=== PATIENT | female | born 1945 | race Caucasian/White ===

== ENCOUNTER → 2017-09-13 14:33 | Outpatient (CLI) | payer MEDICARE, OTHER, SELFPAY | PROVIDERS: Family Provider Internal Medicine; PCP Family Medicine; Visit Provider Internal Medicine | DX: E11.621 Type 2 diabetes mellitus with foot ulcer (principal); L97.511 Non-pressure chronic ulcer of other part of right foot limited to breakdown of skin; L84 Corns and callosities | CPT/HCPCS: 99213 ==

== ENCOUNTER → 2017-09-20 14:18 | Outpatient (CLI) | payer MEDICARE, OTHER, SELFPAY | PROVIDERS: Family Provider Internal Medicine; PCP Family Medicine; Visit Provider Internal Medicine | DX: E11.621 Type 2 diabetes mellitus with foot ulcer (principal); L97.511 Non-pressure chronic ulcer of other part of right foot limited to breakdown of skin | CPT/HCPCS: 99212 ==

== ENCOUNTER 2019-09-02 15:54 | Emergency (ER) | payer MEDICARE, OTHER, SELFPAY ==
[2019-09-02 15:58] VITALS: BP 146/70; PULSE 65; RESP 16; TEMP 36.3; O2SAT 95; BMI 40.1
--- NOTE | 2019-09-02 16:04 | DI.RAD.S_ITS ---
PROCEDURE: XR TIBIA FUBULA RT 2V INDICATIONS: fall TECHNIQUE: 2 views of the tibia and fibula were acquired. COMPARISON: None. FINDINGS: Bones: Oblique fracture involving distal fibular shaft/lateral malleolus is seen. No other fracture or dislocation is seen. No suspicious bony lesions. Soft tissues: No suspicious soft tissue calcifications or masses. Clips are seen in soft tissue over proximal to mid right tibial shaft. IMPRESSION: Distal fibular/lateral malleolus fracture. No proximal tibial or fibular shaft fractures. Dictated by: Sean Hylton M.D. on 09/02/2019 at 16:35 Approved by: Sean Hylton M.D. on 09/02/2019 at 16:37
--- NOTE | 2019-09-02 16:04 | DI.RAD.S_ITS ---
PROCEDURE: XR ANKLE RT MIN 3V INDICATIONS: fall TECHNIQUE: 3 views of the ankle were acquired. COMPARISON: None. FINDINGS: Bones: Oblique fracture involving distal fibular shaft is seen with no significant displacement.. Ankle mortise is normally aligned. No suspicious bony lesions. Soft tissues: No tibiotalar joint effusion. Achilles tendon appears normal. Lateral ankle soft tissue swelling is noted. IMPRESSION: Oblique fracture involving distal fibular/lateral malleolus with overlying soft tissue swelling. Ankle mortise is congruent. Dictated by: Sean Hylton M.D. on 09/02/2019 at 16:35 Approved by: Sean Hylton M.D. on 09/02/2019 at 16:35
[2019-09-02] MEDS: HYDROCODONE/ACET 5/325 TABLET 1 TAB PO (18:54)
--- NOTE | 2019-09-02 19:07 | ED_ITS ---
HPI - Extremity Injury (Lower) <KELLIE Bro - Last Filed: 09/03/19 01:03> General Chief Complaint: Extremity Injury, Lower Stated Complaint: fall, right leg pain Time Seen by Provider: 09/02/19 17:34 Source: patient Mode of arrival: Wheelchair Limitations: no limitations History of Present Illness HPI Narrative: This is a 74-year-old female, smoker, who has history of femoral artery bypass, cardiac stents, hypertension, hyperlipidemia, arthritis presents to ED with her spouse with chief complain of right lateral ankle pain. Patient reports she lost balance and fell in between a bed and a dresser when she woke up this morning at 5:00 a.m. During this her right foot was hyperextended and inverted against a dresser. Patient had used [id number] Tylenol and ice pack until she came in to ED. Denies chest pain, breathing difficulty, dizziness prior to the fall. Denies injuring her head or loss of consciousness after the fall. She reports is currently taking Plavix and aspirin and not to take NSAIDs. She is not sure of history of osteoporosis or osteopenia. She usually uses a walker and has a gait problem. Patient reports intact sensation and is able to move her toes. Patient reports she has bruise to right knee but is able to bend her knees without pain and no pain in pelvis/hips. Related Data Home Medications Medication Instructions Recorded Confirmed OMEPRAZOLE 20 mg PO QDAY #0 05/17/12 aspirin 325 mg PO QDAY #0 05/17/12 carvedilol [Coreg] 12.5 mg PO BID #0 05/17/12 glipizide 5 mg PO BIDAC #0 05/17/12 insulin glargine [Lantus Solostar 57 unit SQ HS #0 05/17/12 U-100 Insulin] lisinopril 5 mg PO QDAY #0 05/17/12 loratadine 10 mg PO QDAY #0 05/17/12 simvastatin 40 mg PO HS #0 05/17/12 tramadol 50 mg PO TID #0 05/17/12 Previous Rx's Medication Instructions Recorded docusate sodium [Colace] 100 mg PO DAILY #14 cap 09/02/19 docusate sodium [Colace] 100 mg PO DAILY #14 cap 09/02/19 hydrocodone-acetaminophen [[place]] 1 tab PO Q8H PRN #14 tab 09/02/19 hydrocodone-acetaminophen [[place]] 1 tab PO TID PRN #14 tab 09/02/19 Allergies Allergy/AdvReac Type Severity Reaction Status Date / Time CODEINE Allergy Mild STOMACH Uncoded 08/07/17 12:02 REACTION Review of Systems <KELLIE Bro - Last Filed: 09/03/19 01:03> Review of Systems Narrative: General: Denies fever, chills, fatigue, malaise, sweats. HEENT: Denies sinus pain, ear pain, sore throat, difficulty swallowing, dizziness. Respiratory: Denies dyspnea, cough, wheezing, hemoptysis, sputum. Cardiovascular: Denies chest pain, palpitations, orthopnea, edema. Gastrointestinal: Denies nausea, vomiting, abdominal pain, diarrhea, constipation, melena. : Denies dysuria, frequency, incontinence, hematuria, urinary retention. Musculoskeletal: See HPI Skin: See HPI Neurologic: Denies weakness, headache, numbness, change in speech, confusion, seizures, incoordination. Psychiatric: No concerning psychosocial issues. 12-point review of systems is negative except for those stated above. Patient History <KELLIE Bro - Last Filed: 09/03/19 01:03> Medical History Arthritis (Acute) Femoral abnormality (Acute) Gait difficulty (Acute) Hyperlipidemia (Acute) Hypertension (Acute) Surgical History H/O heart artery stent (Acute) History of bilateral tubal ligation (Acute) Hx of cholecystectomy (Acute) Social History Smoking Status: Current every day smoker Smoking Status: Current every day smoker tobacco type: cigarettes alcohol intake frequency: holidays/special occasions only Substance Use Type: does not use Exam <KELLIE Bro - Last Filed: 09/03/19 01:03> Narrative Exam Narrative: General appearance: well developed, well nourished, in no acute distress. Head: normocephalic, atraumatic, no scalp lesions, non-tender. ENT: Hearing grossly intact. Nose without bleeding, purulent discharge. Mucous membrane moist, no mucosal lesion. Throat without erythema, tonsillar hypertrophy or exudate. Uvula in midline, airway patent. Neck/Thyroid: neck supple, full range of motion, no visible masses or meningeal signs. No JVD, non-tender without lymphadenopathy. Skin: no suspicious rashes, lesions over visible areas. Warm and dry and appropriate color for ethnicity. Heart: no clubbing, no cyanosis, no edema. S1 and S2 normal. RRR w/o murmurs, clicks, or bruits. Lungs: Breathing even and unlabored. No stridor. No accessory muscles used. Able to speak in full sentences. Chest: normal shape and expansion. Abdomen: non-obese, non-distended. Neurologic: alert and oriented. Cognitive exam, [employer] and PNS grossly intact on informal exam. Psych: good eye contact, normal affect. Initial Vital Signs Initial Vital Signs: Vital Signs Temperature 97.4 F L 09/02/19 15:58 Pulse Rate 65 09/02/19 15:58 Respiratory Rate 16 09/02/19 15:58 Blood Pressure 146/70 H 09/02/19 15:58 Pulse Oximetry 95 09/02/19 15:58 Extrem Right lower extremity: hip/thigh Details: normal ROM; no tenderness and no swelling, knee Details: normal to inspection, tenderness (to palpate in medial knee but normal movement), normal ROM, knee ligament exam normal and ecchymosis (light ecchymosis in medial knee); no swelling, ankle Details: abnormal to inspection, tenderness Location: of the lateral malleolus, swelling (ankle, worse in lateral aspect), abnormal ROM Details: pain with passive ROM Details: with plantar flexion, with dorsiflexion, with inversion and with eversion and ecchymosis (lateral ankle); no unusual warmth, no abrasions and no lacerations and foot Details: normal capillary refill, vascular exam Details: dorsalis pedis pulse present and motor-sensory exam Details: light-touch normal <Adin Rosales, DO - Last Filed: 09/03/19 05:07> Initial Vital Signs Initial Vital Signs: Vital Signs Temperature 97.4 F L 09/02/19 15:58 Pulse Rate 65 09/02/19 15:58 Respiratory Rate 16 09/02/19 15:58 Blood Pressure 146/70 H 09/02/19 15:58 Pulse Oximetry 95 09/02/19 15:58 Procedures <KELLIE Bro - Last Filed: 09/03/19 01:03> Orthopedic Splinting/Casting Injury #1: Side: right Lower Extremity Injury Location: ankle Lower Extremity Immobilizer: stirrup splint Post splinting neuro exam: intact Post splinting vascular exam: intact Placed by: Nursing Scores <KELLIE Bro - Last Filed: 09/03/19 01:03> GCS [place] coma scale eye opening: Spontaneous [place] coma scale verbal response: Orientated [place] coma scale motor response: Obey commands Cathy coma scale total score: 15 Course <KELLIE Bro Last Filed: 09/03/19 01:03> Orders Ordered: Discontinued Medications Hydrocodone Bitart/Acetaminophen ([place] 5/325) 1 tab PO NOW ONE Stop: 09/02/19 18:17 Last Admin: 09/02/19 18:54 Dose: 1 tab Documented by: CAPO Hydrocodone Bitart/Acetaminophen (Vicodin 5/325 Prepack) 1 bottle MISC SEEINSTR ONE Stop: 09/02/19 19:17 Last Admin: 09/02/19 19:38 Dose: 1 bottle Documented by: LINCOLN Vital Signs Vital signs: Vital Signs - 8 hr 09/02/19 15:58 Temperature 97.4 F L Pulse Rate 65 Respiratory Rate 16 Blood Pressure 146/70 H Pulse Oximetry 95 <Adin Rosales DO - Last Filed: 09/03/19 05:07> Orders Ordered: Discontinued Medications Hydrocodone Bitart/Acetaminophen ([place] 5/325) 1 tab PO NOW ONE Stop: 09/02/19 18:17 Last Admin: 09/02/19 18:54 Dose: 1 tab Documented by: CAPO Hydrocodone Bitart/Acetaminophen (Vicodin 5/325 Prepack) 1 bottle MISC SEEINSTR ONE Stop: 09/02/19 19:17 Last Admin: 09/02/19 19:38 Dose: 1 bottle Documented by: LINCOLN Vital Signs Vital signs: Vital Signs - 8 hr 09/02/19 15:58 Temperature 97.4 F L Pulse Rate 65 Respiratory Rate 16 Blood Pressure 146/70 H Pulse Oximetry 95 MDM - Extremity Injury (Lower) <KELLIE Bro - Last Filed: 09/03/19 01:03> Differential Diagnosis Differential diagnosis: Likely ankle fracture and other (contusion to right knee) Medical Records Attestation: I reviewed the patient's medical records. Imaging Data XR-Ankle RT: Radiologist's Impression: [address] [address] XRay Report Signed Patient: Lizzy Sifuentes#: [id number] : 5Acct:[id number] Age/Sex: 74 / FDate of Service: 09/02/19 Loc: ED Accession Number: [id number] Procedure: XR ankle RT min 3V Ordering Provider: Carrie Bryson MD PROCEDURE: XR ANKLE RT MIN 3V INDICATIONS: fall TECHNIQUE: 3 views of the ankle were acquired. COMPARISON: None. FINDINGS: Bones: Oblique fracture involving distal fibular shaft is seen with no significant displacement.. Ankle mortise is normally aligned. No suspicious bony lesions. Soft tissues: No tibiotalar joint effusion. Achilles tendon appears normal. Lateral ankle soft tissue swelling is noted. IMPRESSION: Oblique fracture involving distal fibular/lateral malleolus with overlying soft tissue swelling. Ankle mortise is congruent. Dictated by: Sean Hylton M.D. on 09/02/2019 at 16:35 Approved by: Sean Hylton M.D. on 09/02/2019 at 16:35 XR-Tib/fibula RT: Radiologist's Impression: [address] [address] XRay Report Signed Patient: Lizzy Sifuentes#: [id number] : 5Acct:[id number] Age/Sex: 74 / FDate of Service: 09/02/19 Loc: ED Accession Number: [id number] Procedure: XR tibia fibula RT 2V Ordering Provider: Carrie Bryson MD PROCEDURE: XR TIBIA FUBULA RT 2V INDICATIONS: fall TECHNIQUE: 2 views of the tibia and fibula were acquired. COMPARISON: None. FINDINGS: Bones: Oblique fracture involving distal fibular shaft/lateral malleolus is seen. No other fracture or dislocation is seen. No suspicious bony lesions. Soft tissues: No suspicious soft tissue calcifications or masses. Clips are seen in soft tissue over proximal to mid right tibial shaft. IMPRESSION: Distal fibular/lateral malleolus fracture. No proximal tibial or fibular shaft fractures. Dictated by: Sean Hylton M.D. on 09/02/2019 at 16:35 Approved by: Sean Hylton M.D. on 09/02/2019 at 16:37 MDM Narrative Medical decision making narrative: This is a 74 year female who presents to ED with right ankle pain and swelling after she lost balance and fell this morning at 5:00 a.m.. Patient has history of cardiac stents, right femoral artery bypass, hypertension and hyperlipidemia and currently takes Plavix and aspirin as an anticoagulant. Patient had intact sensation and dorsal pedal pulse. Patient was able to wiggle her toes and move her foot lightly against resistance for plantar flexion and dorsal extension. There was swelling noticed around the ankle. Tib/Fib and ankle xray indicates distal fibula/lateral malleolar oblique fracture. There is no TB old her served joint effusion appreciated. Ankle mortise is congruent. Ankle stirup splint has been applied on affected leg and medicated patient with [place] since patient is not able to take NSAIDS. Dr. Bran was phone consulted and recommended ortho boot or ankle stirrup splint as long as non-displaced ankle distal tib/fib fracture and to follow-up at [facility] this with. Dr. Bran clarified that limit weight bearing as much as possible but requiring for strict non-weight bearing if the patient is unable to use crutches. Patient has history of gait difficulty and informed that she is unable to use crutches. Patient discharged to with Newport for severe pain and advised to use [id number] Tylenol as 1st line pain treatment along RICE therapy and to use splint all times. Narcotic and Tylenol medication precautions were discussed with the patient. Patient verbalized understanding and agreement with the treatment plan. Discharge Plan Departure Patient Disposition: Home Clinical Impression: Closed tibial fracture Qualifiers: Encounter type: initial encounter Tibia location: distal Fracture morphology: unspecified fracture morphology Laterality: right Qualified Code(s): S82.301A - Unspecified fracture of lower end of right tibia, initial encounter for closed fracture Discharge Date/Time: 09/02/19 19:39 Instructions: DI for Ankle Fracture Activity Restrictions/Additional Instructions: You have been diagnosed with [right closed distal fibula fracture. Please use c ool packs for next 48 hours and elevate affected limb. Use splint all times.]. What to do: *Take your medications as directed. You were medicated with Newport while in ED. Since you cannot take NSIDS, please take Tylenol as needed for discomfort. Narcotic medication [place] for severe pain please. This medication can cause drowsiness so please do not drive, drink alcohol or operate heavy equipments. He can cause constipation as well so please take precautions. [place] has Tylenol mixed in it and you can take total about 3000 mg Tylenol in 24 hour period. Please wear splint all time. Please limit weight-bearing as much as possible. Use a walker that you have and follow-up with [facility] for respiratory and complex care orthopedist. *Follow up with your primary care provider in 2-3 days, call for an appointment. Let them know you were seen in the ED and that we asked you to be seen in follow up. *Return to ED if you have any new, worsening, or concerning symptoms, such as [chest pain, breathing difficulty, unable to tolerate fluids, tingling/numbness/weakness, fever or any acute concerns]. Prescriptions: New hydrocodone-acetaminophen [[place]] 5-325 mg tablet 1 tab PO TID PRN (Reason: pain) Qty: 14 RF: 0 docusate sodium [Colace] 100 mg capsule 100 mg PO DAILY Qty: 14 RF: 0 hydrocodone-acetaminophen [[place]] 5-325 mg tablet 1 tab PO Q8H PRN (Reason: pain) Qty: 14 RF: 0 docusate sodium [Colace] 100 mg capsule 100 mg PO DAILY Qty: 14 RF: 0 No Action carvedilol [Coreg] 12.5 MG tablet 12.5 mg PO BID Qty: 0 RF: 0 aspirin 325 MG tablet 325 mg PO QDAY Qty: 0 RF: 0 simvastatin 40 MG tablet 40 mg PO HS Qty: 0 RF: 0 loratadine 10 MG tablet 10 mg PO QDAY Qty: 0 RF: 0 tramadol 50 MG tablet 50 mg PO TID Qty: 0 RF: 0 lisinopril 5 MG tablet 5 mg PO QDAY Qty: 0 RF: 0 OMEPRAZOLE 20 mg PO QDAY Qty: 0 RF: 0 glipizide 5 MG tablet 5 mg PO BIDAC Qty: 0 RF: 0 insulin glargine [Lantus Solostar U-100 Insulin] 100 UNIT/1 ML insulin pen 57 unit SQ HS Qty: 0 RF: 0 Referrals: [facility] [Provider Group] Jarvis Hobbs DO [Primary Care Provider] - <Adin Rosales DO - Last Filed: 09/03/19 05:07> Cosign ED Attending Williamsature Attestation: I was immediately available in the department for consultation. This documentation has been reviewed and I agree with assessment and plan. Supervised by Adin Rosales DO
[2019-09-02] MEDS: HYDROCODONE/ACET 5/325 PREPACK 1 BOTTLE MISC (19:38)
== END 2019-09-02 19:39 | disposition home or self-care (01) ==
PROVIDERS: Emergency Provider Nurse Practitioner Family; Family Provider Internal Medicine; PCP Family Medicine
DX: S82.301A Unspecified fracture of lower end of right tibia, initial encounter for closed fracture (principal); W19.XXXA Unspecified fall, initial encounter; I10 Essential (primary) hypertension; E78.5 Hyperlipidemia, unspecified
CPT/HCPCS: 29515; 73590; 73610; 99283